=== PATIENT | male | born 1985 ===

== ENCOUNTER 2018-08-07 00:34 | Emergency (ER) | payer OTHER ==
--- NOTE | 2018-08-07 02:26 | C.PDOC ---
History Of Present Illness 33 y/o male presents to the ED for evaluation of eyelid injury sustained tonight. Patient states while playing basketball he accidentally bumped heads with another player, cutting his left upper eyelid. Denies any LOC. No other injury or visual loss. Time Seen by Provider: 08/07/18 01:24 Chief Complaint (Nursing): Abnormal Skin Integrity History Per: Patient History/Exam Limitations: no limitations Onset/Duration Of Symptoms: Hrs Current Symptoms Are (Timing): Still Present Past Medical History Reviewed: Historical Data, Nursing Documentation, Vital Signs Vital Signs: Last Vital Signs Temp 98.1 F 08/07/18 00:43 Pulse 101 H 08/07/18 00:43 Resp 18 08/07/18 00:43 BP 128/91 H 08/07/18 00:43 Pulse Ox 99 08/07/18 00:43 - Medical History PMH: No Chronic Diseases Surgical History: No Surg Hx Family History: States: No Known Family Hx - Social History Hx Alcohol Use: Yes Hx Substance Use: No - Immunization History Hx Tetanus Toxoid Vaccination: Yes (2013) Hx Influenza Vaccination: Yes Review Of Systems Constitutional: Negative for: Fever, Weakness Eyes: Positive for: Eyelid Inflammation (+ laceration to left eyelid). Negative for: Vision Change Cardiovascular: Negative for: Chest Pain Respiratory: Negative for: Shortness of Breath Gastrointestinal: Negative for: Nausea, Vomiting Neurological: Negative for: Weakness, Numbness, Confusion, Headache, Dizziness Physical Exam - Physical Exam Appears: Well, Non-toxic, No Acute Distress Skin: Normal Color, Warm, No Rash Head: Atraumatic, Normacephalic Eye(s): bilateral: PERRL, EOMI, left: Other (2.5 cm horizontal laceration to left upper eyelid, with some active bleeding, no globe involvement, no crepitus, no foreign body or discharge) Nose: Normal Oral Mucosa: Moist Chest: Symmetrical Respiratory: No Accessory Muscle Use, Other (Normal inspiratory effort) Extremity: Bilateral: Atraumatic, Normal ROM Neurological/Psych: Oriented x3, Normal Cranial Nerves Gait: Steady ED Course And Treatment O2 Sat by Pulse Oximetry: 99 (RA) Pulse Ox Interpretation: Normal Laceration - Laceration Repair left eyelid Wound Length (In cm): 2.5 Description Of Wound: Linear Wound Cleansed With: Sterile Saline Anesthesia: Lidocaine 1% Wound Examination: Irrigated With Saline, No FB With Wound Exploration Wound Closure: Suture (x 7) Suture Technique And Material Used: Interrupted, Nylon (6:0) Wound Complexity: Simple Medical Decision Making Medical Decision Making: Plan: - Laceration repair Wound closed without difficulty, tolerated well by patient. Patient instructed to return for suture removal in 7 days. Wound care educated. Disposition Counseled Patient/Family Regarding: Diagnosis, Need For Followup - Disposition Referrals: Non [facility] Provider, [Primary Care Provider] - Disposition: HOME/ ROUTINE Disposition Time: 02:25 Condition: IMPROVED Additional Instructions: Return in 7 days for suture removal. keep area clean and dry. 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 - Scribe Statement The provider has reviewed the documentation as recorded by the Scribe Melissa Estrada All medical record entries made by the Scribe were at my direction and personally dictated by me. I have reviewed the chart and agree that the record accurately reflects my personal performance of the history, physical exam, medical decision making, and the department course for this patient. I have also personally directed, reviewed, and agree with the discharge instructions and disposition.
[2018-08-07 02:40] VITALS: BP 133/87; PULSE 87; RESP 20; TEMP 98.6
[2018-08-07 03:32] VITALS: O2SAT 99
== END 2018-08-07 02:40 | disposition home or self-care (01) ==
LOC: SUPCPDRO 00:34 → C.ER 00:34
DX: S01.112A Laceration without foreign body of left eyelid and periocular area, initial encounter (principal); W51.XXXA Accidental striking against or bumped into by another person, initial encounter; Y93.67 Activity, basketball; Y92.310 Basketball court as the place of occurrence of the external cause